=== PATIENT | female | born 1990 | race Caucasian/White ===

== ENCOUNTER 2018-12-13 19:27 | Inpatient (IN) | payer OTHER ==
[~2018-12-13] VITALS: Ht 170.2 cm; Wt 84.3 kg
[2018-12-13] MEDS ORDERED: ENOX80DI12 SC (22:06)
[2018-12-13] MEDS ORDERED: COU10 PO (22:06)
[2018-12-13] MEDS ORDERED: WARF5TAB PO (22:06)
[2018-12-13 22:14] VITALS: Ht 170.2 cm; Wt 84.3 kg
[2018-12-13] MEDS ORDERED: ACETAMINOPHEN 325 MG TAB PO PRN (22:30)
[2018-12-13] MEDS ORDERED: ONDANSETRON 4 MG INJ IV PRN (22:30)
[2018-12-13] MEDS: PROMETHAZINE/CODEINE 5ML CUP PO PRN (23:13)
[2018-12-13] MEDS: ENOXAPARIN 80 MG/0.8 ML SYG SC SCH (23:18)
[2018-12-13 23:20] VITALS: BP 126/77; PULSE 85; RESP 18
[2018-12-14] VITALS (11 sets, daily range): BP systolic 116–126; BP diastolic 65–78; PULSE 66–96; RESP 16–18
[2018-12-14] MEDS: PROMETHAZINE/CODEINE 5ML CUP PO PRN (05:21)
[2018-12-14] MEDS: PANTOPRAZOLE (EC) 40 MG TAB PO SCH (05:21)
[2018-12-14] MEDS: ENOXAPARIN 80 MG/0.8 ML SYG SC SCH ×2 (08:33→20:17)
--- NOTE | 2018-12-14 09:30 | QN ---
Documentation Comment pt seen and examined ORI KIDD MD December 14, 2018 09:30
--- NOTE | 2018-12-14 13:43 | HP ---
DATE OF ADMISSION: 12/13/2018 REASON FOR ADMISSION: Transferred from [facility] secondary to PE. HISTORY OF PRESENTING ILLNESS: This is a 28-year-old female with past medical history of antithrombi n III deficiency since 2009, history of PE in the past, presented to the emergency department at [facility] on 12/12/2018 secondary to sudden onset of cough and chest pain. According to the jeanna stephens, she normally follows with Coumadin with her doctor. She takes Coumadin 10 mg Wednesday, , Wednesday, Wednesday and 15 mg Wednesday and . She was supposed to get some kind of dental work like a root canal and was off of Coumadin for 3 weeks. She just started taking Coumadin 2 days prio r to admission. She had been exerting a lot due to her graduation and for the last 2 to 3 days prior to admission at [facility], she was feeling weak, having cough and some chest pain that made her com e to the emergency department at [facility]. On arrival to the ED there, vital signs were stable. S odium 140, potassium 3.6, chloride 106, bicarbonate 25, BUN of 10, creatinine 0.62. LFTs within norm al limits. The patient had CT angiogram that showed focal filling defect at the junction of the left lower pulmonary artery extending to the lower lobe branches remained in demonstration of loose opaci fication of the left lower pulmonary arteries, cannot exclude new pulmonary embolism, superimposed on chronic PE scarring, hepatic steatosis. The patient was started on Lovenox bridging and Coumadin an d was transferred to [facility] due to insurance reasons. The patient's INR was 1 yesterday and received 15 mg of Coumadin yesterday. PAST MEDICAL HISTORY: History of antithrombin III deficiency since 2009. ALLERGIES: HYDROMORPHONE. MEDICATIONS TAKING AT HOME: Coumadin 10 mg Wednesday, Wednesday, Wednesday, Wednesday and 15 mg Wednesday and . PAST SURGICAL HISTORY: D and C x2. SOCIAL HISTORY: Occasionally drinks alcohol. Denies any smoking, alcohol or any drug use. Currentl y graduated from [employer]. FAMILY HISTORY: Significant for antithrombin III deficiency present in the mother and the sister and father's side of the family. REVIEW OF SYSTEMS: The patient has some cough. Denies any chest pain, any shortness of breath, any abdominal pain, nausea, vomiting, diarrhea, any hematemesis, any melena, any bright red blood per rec chitra. PHYSICAL EXAMINATION: VITAL SIGNS: Currently temperature 98.0, heart rate 70, respirations 16, blood pressure 117/65, satu rating 97%. GENERAL: The patient is awake, alert, oriented, does not appear to be in any acute distress. HEENT: Pupils are equal, round, reactive to light. NECK: Supple. No JVD. HEART: Regular rate and rhythm. LUNGS: Clear to auscultate bilaterally. ABDOMEN: Soft, nontender, nondistended. Positive normoactive bowel sounds. EXTREMITIES: No clubbing, cyanosis or edema. NEUROLOGIC: Nonfocal. LABORATORY DATA: Currently, BMP within normal limit. INR is 1.50. ASSESSMENT AND PLAN: This is a 28-year-old female who presented with: 1. 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 CTA was performed which was consistent with recurrent segmental and subsegmental pulmonary embo li, no evidence of hemodynamic compromise. 2. History of antithrombin III deficiency. 3. History of pulmonary embolism. PLAN: At this period of time, the patient is admitted to [facility]. We will continue the patient on Love nox bridging with Coumadin. We will give 10 mg of Coumadin today. Hematology and pulmonary consulta tion has been requested. Rest of the treatment will depend on the patient's hospitalization course. Dictated By: ORI PAN/PATRICK Conf#: [id number] DID#: [id number] CC: BETTY LOUIS MD;*EndCC*
--- NOTE | 2018-12-14 16:33 | CONS ---
DATE OF ADMISSION: 12/13/2018 DATE OF CONSULTATION: REASON FOR CONSULT: Recurrent thromboembolic disease. 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 Since that time, she has had several PEs, last one wa s 2 years ago. She continues lifelong anticoagulation with Coumadin. In addition, the patient has h ad recent worsening respiratory distress secondary to an upper respiratory tract infection. She has not been seen previously by a pumper gauger apprentice or oncologist. She has family history of antithrombin III deficiency. Her mother was diagnosed with this problem before she was. PAST MEDICAL HISTORY: As above. MEDICATIONS: Per chart. ALLERGIES: NONE. SOCIAL HISTORY: Nonsmoker. No alcohol. No history of drug use. FAMILY HISTORY: Noncontributory. REVIEW OF SYSTEMS: A 12-point review of systems negative other than that mentioned above. PHYSICAL EXAMINATION: GENERAL: Well-nourished, well-developed lady, talking in full and complete sentences. VITAL SIGNS: Currently afebrile, pulse is 90, blood pressure 116/73, O2 sat 97% on room air. NECK: Supple. No JVD or lymphadenopathy. CARDIAC: S1, S2. No added sounds or murmurs. CHEST: Diminished air entry bilaterally. ABDOMEN: Soft, nontender. No guarding or rebound. EXTREMITIES: No cyanosis, clubbing, edema. NEUROLOGIC: Grossly intact. No focal deficits. 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 RECOMMENDATIONS: The patient would likely benefit from an alternative anticoagulation such as Eliqui s given her difficulty maintaining therapeutic INR on Coumadin. I will discuss this with hematologis t, but this seems like the safest approach. Dictated By: BETTY BARAHONA/PATRICK Conf#: [id number] DID#: [id number] CC: ORI KIDD;*EndCC*
[2018-12-14] MEDS ORDERED: WARFARIN 7.5 MG TAB PO ONE (17:00)
--- NOTE | 2018-12-14 23:33 | CONS ---
Assessment/Plan Assessment/Plan Hospital Course (Demo Recall) 28 yo with h/p PE in the past and dx of AT III def. off of coumadin for dental procedure and developed new PEshe has been on coumadin almost 9 years and done well. she had a PE due to being off of coumadin x several weeks without bridging she has never had trouble maintating a therapeutic INR we discused the various anticoagulants she prefers to stay on coumadin as she has done well with it and the fact that reversibility is straightforward conyt lovenox and coumadin overalap. in future for any procedures she needs bridging with lovenox Consultation Date/Type/Reason Admit Date/Time December 13, 2018 at 21:42 Date/Time of Note DATE: 12/14/18 TIME: 23:30 Hx of Present Illness This is a 28-year-old female with past medical history of antithrombin III deficiency since 2009, history of PE in the past, presented to the emergency department at [facility] on 12/12/2018 secondary to sudden onset of cough and chest pain. According to the patient, she normally follows with Coumadin with her doctor. She takes Coumadin 10 mg Wednesday, Wednesday, Wednesday, Wednesday and 15 mg Wednesday and . She was supposed to get some kind of dental work like a root canal and was off of Coumadin for 3 weeks. She just started taking Coumadin 2 days prior to admission. She had been exerting a lot due to her graduation and for the last 2 to 3 days prior to admission at [facility], she was feeling weak, having cough and some chest pain that made her come to the emergency department at [facility]. On arrival to the ED there, vital signs were stable. Sodium 140, potassium 3.6, chloride 106, bicarbonate 25, BUN of 10, creatinine 0.62. LFTs within normal limits. The patient had CT angiogram that showed focal filling defect at the junction of the left lower pulmonary artery extending to the lower lobe branches remained in demonstration of loose opacification of the left lower pulmonary arteries, cannot exclude new pulmonary embolism, superimposed on chronic PE scarring, hepatic steatosis. The patient was started on Lovenox bridging and Coumadin and was transferred to [facility] due to insurance reasons. The patient's INR was 1 yesterday and received 15 mg of Coumadin yesterday. Past Medical History Home Meds Reported Medications Warfarin Sodium* (Coumadin*) 5 Mg Tablet, 5 MG PO DAILY, TAB 12/13/18 Warfarin Sodium (Coumadin) 10 Mg Tablet, 10 MG PO DAILY, TAB 12/13/18 Enoxaparin Sodium* (Lovenox*) 80 Mg/0.8 Ml Disp.syrin, 80 MG SC Q12, SYR 12/13/18 Medications Current Medications Enoxaparin Sodium (Lovenox) 80 mg Q12 SC Last administered on 12/14/18at 20:17; Admin Dose 80 MG; Start 12/13/18 at 22:30 Promethazine HCl/ Codeine (Phenergan/ Codeine) 5 ml Q4H PRN PO COUGH Last administered on 12/14/18at 05:21; Admin Dose 5 ML; Start 12/13/18 at 22:30 Acetaminophen (Tylenol Tab) 650 mg Q6H PRN PO MILD PAIN(1-3)OR ELEVATED TEMP; Start 12/13/18 at 22:30 Ondansetron HCl (Zofran Inj) 4 mg Q6H PRN IV NAUSEA AND/OR VOMITING; Start 12/13/18 at 22:30 Pantoprazole (Protonix Tab) 40 mg DAILY@06 PO Last administered on 12/14/18at 05:21; Admin Dose 40 MG; Start 12/14/18 at 06:00 Allergies: Coded Allergies: hydromorphone (Verified Allergy, Intermediate, itchiness, 12/13/18) Social History Smoking Status: Former smoker Exam/Review of Systems Exam Vitals Vital Signs Date Temp Pulse Resp B/P (MAP) Pulse Ox O2 O2 Flow FiO2 Time Delivery Rate 12/14/18 90 21:46 12/14/18 98.1 17 126/65 99 19:22 (85) 12/14/18 Room Air 15:20 Intake and Output 12/13/18 12/13/18 12/14/18 1515:00 23:00 07:00 IntakeIntake Total 300 ml BalanceBalance 300 ml Results Result Diagram: 12/14/1814 12/14/1814 Results 24hrs Laboratory Tests Test 12/14/18 06:14 White Blood Count 6.3 Red Blood Count 4.37 Hemoglobin 13.5 Hematocrit 40.6 Mean Corpuscular Volume 92.9 Mean Corpuscular Hemoglobin 30.9 Mean Corpuscular Hemoglobin Concent 33.3 Red Cell Distribution Width 12.2 Platelet Count 265 Mean Platelet Volume 8.6 Immature Granulocytes % 0.300 Neutrophils % 33.6 L Lymphocytes % 49.0 Monocytes % 14.8 H Eosinophils % 1.7 Basophils % 0.6 Nucleated Red Blood Cells % 0.0 Immature Granulocytes # 0.020 Neutrophils # 2.1 Lymphocytes # 3.1 H Monocytes # 0.9 Eosinophils # 0.1 Basophils # 0.0 Nucleated Red Blood Cells # 0.0 Prothrombin Time 18.2 H Prothrombin Time Ratio 1.4 INR International Normalized Ratio 1.50 Sodium Level 139 Potassium Level 4.1 Chloride Level 105 Carbon Dioxide Level 26 Anion Gap 8 Blood Urea Nitrogen 12 Creatinine 0.67 Est Glomerular Filtrat Rate mL/min > 60 Glucose Level 89 Calcium Level 9.1 Medications Medication Current Medications Enoxaparin Sodium (Lovenox) 80 mg Q12 SC Last administered on 12/14/18at 20:17; Admin Dose 80 MG; Start 12/13/18 at 22:30 Promethazine HCl/ Codeine (Phenergan/ Codeine) 5 ml Q4H PRN PO COUGH Last administered on 12/14/18at 05:21; Admin Dose 5 ML; Start 12/13/18 at 22:30 Acetaminophen (Tylenol Tab) 650 mg Q6H PRN PO MILD PAIN(1-3)OR ELEVATED TEMP; Start 12/13/18 at 22:30 Ondansetron HCl (Zofran Inj) 4 mg Q6H PRN IV NAUSEA AND/OR VOMITING; Start 12/13/18 at 22:30 Pantoprazole (Protonix Tab) 40 mg DAILY@06 PO Last administered on 12/14/18at 05:21; Admin Dose 40 MG; Start 12/14/18 at 06:00 CHRISTIAN SCHAEFER December 14, 2018 23:33
[2018-12-15] VITALS (11 sets, daily range): BP systolic 116–129; BP diastolic 62–75; PULSE 59–90; RESP 16–19
[2018-12-15] MEDS: PROMETHAZINE/CODEINE 5ML CUP PO PRN ×3 (01:00→20:14)
[2018-12-15] MEDS: PANTOPRAZOLE (EC) 40 MG TAB PO SCH (01:24)
[2018-12-15] MEDS: ENOXAPARIN 80 MG/0.8 ML SYG SC SCH ×2 (09:25→21:22)
--- NOTE | 2018-12-15 09:45 | CONS ---
Assessment/Plan Assessment/Plan Assessment/Plan (Daily) Assessment and recommendations; 1. Patient with history of Antithrombin III deficiency and history of chronic recurrent thromboembolic disease admitted for what appears to be URI with significant clinical improvement. Continue current supportive care. As outlined earlier patient is a candidate f or apixaban or Xarelto going to faculty maintaining therapeutic INR on Coumadin. However this will be deferred to the director summer sessions. Consultation Date/Type/Reason Admit Date/Time December 13, 2018 at 21:42 Initial Consult Date Type of Consult Pulmonary Reason for Consultation Patient's condition is stable. Denies any wheezing. Complains of scant cough. Denies any hemoptysis. Denies any further shortness of breath. General exam; young woman, awake alert, currently no distress. Date/Time of Note DATE: 12/15/18 TIME: 09:43 Exam/Review of Systems Exam Vitals Vital Signs Date Temp Pulse Resp B/P (MAP) Pulse Ox O2 O2 Flow FiO2 Time Delivery Rate 12/15/18 59 08:24 12/15/18 98.0 17 127/67 99 04:42 (87) 12/14/18 Room Air 15:20 Intake and Output 12/14/18 12/14/18 12/15/18 1515:00 23:00 07:00 IntakeIntake Total 1480 ml 800 ml BalanceBalance 1480 ml 800 ml Exam H EENT exam; supple neck, no JVD. No lymphadenopathy. Midline trachea. No thyromegaly. Patient has fair dentition. Pharynx is clear. No neck masses. Chest exam; clear to auscultation. S1-S2 audible, no murmurs. Regular rhythm. Abdomen exam; soft, nontender. Bowel sounds audible. Extremity exam; no peripheral edema clubbing. PATTERN MARKER exam; no focal deficit. Results Result Diagram: 12/14/18 0614 12/14/18 0614 Results 24hrs Laboratory Tests Test 12/15/18 07:32 Prothrombin Time 23.9 #H Prothrombin Time Ratio 1.9 INR International Normalized Ratio 2.13 Medications Medication Current Medications Enoxaparin Sodium (Lovenox) 80 mg Q12 SC Last administered on 12/15/18at 09:25; Admin Dose 80 MG; Start 12/13/18 at 22:30 Promethazine HCl/ Codeine (Phenergan/ Codeine) 5 ml Q4H PRN PO COUGH Last administered on 12/15/18at 01:00; Admin Dose 5 ML; Start 12/13/18 at 22:30 Acetaminophen (Tylenol Tab) 650 mg Q6H PRN PO MILD PAIN(1-3)OR ELEVATED TEMP; Start 12/13/18 at 22:30 Ondansetron HCl (Zofran Inj) 4 mg Q6H PRN IV NAUSEA AND/OR VOMITING; Start 12/13/18 at 22:30 Pantoprazole (Protonix Tab) 40 mg DAILY@06 PO Last administered on 12/15/18at 01:24; Admin Dose 40 MG; Start 12/14/18 at 06:00 MARV PRADO December 15, 2018 09:45
--- NOTE | 2018-12-15 11:44 | PN ---
Date/Time of Note Date/Time of Note DATE: 12/15/18 TIME: 11:40 Assessment/Plan VTE Prophylaxis Risk score (from [facility] risk: 3 SCD applied (from [facility]): No SCD contraindicated: low risk/ambulating, other Pharmacological prophylaxis: warfarin tx Lines/Catheters IV Catheter Type (from [facility]): Saline Lock Assessment/Plan Hospital Course 1. 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 CTA was performed which was consistent with recurrent segmental and subsegmental pulmonary emboli, no evidence of hemodynamic compromise. 2. History of antithrombin III deficiency. 3. History of pulmonary embolism. 4. Overweight Assessment/Plan - tele. -ok shower -GI proph. protonix - Coumadin high dose is given. - c/w Coumadin today. - Hematology and pulmonary consultation -DVT treatment Coumadin Result Diagram: 12/14/1861312/14/18613 Results 24hrs Laboratory Tests Test 12/15/18 07:32 Prothrombin Time 23.9 #H Prothrombin Time Ratio 1.9 INR International Normalized Ratio 2.13 Subjective 24 Hr Interval Summary Constitutional: no complaints Exam/Review of Systems Exam Vitals Vital Signs Date Temp Pulse Resp B/P (MAP) Pulse Ox O2 O2 Flow FiO2 Time Delivery Rate 12/15/18 98.7 82 16 116/67 97 Room Air 11:15 (83) Intake and Output 12/14/18 12/14/18 12/15/18 1515:00 23:00 07:00 IntakeIntake Total 1480 ml 800 ml BalanceBalance 1480 ml 800 ml Constitutional: alert, oriented Respiratory: clear to auscultation Cardiovascular: regular rate and rhythm Gastrointestinal: soft Results Results 24hrs Laboratory Tests Test 12/15/18 07:32 Prothrombin Time 23.9 #H Prothrombin Time Ratio 1.9 INR International Normalized Ratio 2.13 Medications Medication Current Medications Enoxaparin Sodium (Lovenox) 80 mg Q12 SC Last administered on 12/15/18at 09:25; Admin Dose 80 MG; Start 12/13/18 at 22:30 Promethazine HCl/ Codeine (Phenergan/ Codeine) 5 ml Q4H PRN PO COUGH Last administered on 12/15/18at 01:00; Admin Dose 5 ML; Start 12/13/18 at 22:30 Acetaminophen (Tylenol Tab) 650 mg Q6H PRN PO MILD PAIN(1-3)OR ELEVATED TEMP; Start 12/13/18 at 22:30 Ondansetron HCl (Zofran Inj) 4 mg Q6H PRN IV NAUSEA AND/OR VOMITING; Start 12/13/18 at 22:30 Pantoprazole (Protonix Tab) 40 mg DAILY@06 PO Last administered on 12/15/18at 01:24; Admin Dose 40 MG; Start 12/14/18 at 06:00 DANIELE AGUILAR December 15, 2018 11:44
[2018-12-16] VITALS (10 sets, daily range): BP systolic 105–119; BP diastolic 57–80; PULSE 68–97; RESP 16–19
[2018-12-16] MEDS: PANTOPRAZOLE (EC) 40 MG TAB PO SCH (05:52)
[2018-12-16] MEDS: PROMETHAZINE/CODEINE 5ML CUP PO PRN (05:54)
[2018-12-16] MEDS: ENOXAPARIN 80 MG/0.8 ML SYG SC SCH ×2 (09:04→21:17)
--- NOTE | 2018-12-16 13:49 | PN ---
Date/Time of Note Date/Time of Note DATE: 12/16/18 TIME: 13:48 Assessment/Plan VTE Prophylaxis Risk score (from [facility] [place])>0 risk: 3 SCD applied (from [facility] [place]): No SCD contraindicated: low risk/ambulating Pharmacological prophylaxis: LMWH Lines/Catheters IV Catheter Type (from [facility]): Saline Lock Assessment/Plan Hospital Course 1. 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 CTA was performed which was consistent with recurrent segmental and subsegmental pulmonary emboli, no evidence of hemodynamic compromise. 2. History of antithrombin III deficiency. 3. History of pulmonary embolism. 4. Overweight Assessment/Plan - tele. -ok shower -GI proph. protonix - Coumadin high dose is ordered today - Hematology and pulmonary consultation -DVT treatment Coumadin Result Diagram: 12/16/1837 12/16/1837 Results 24hrs Laboratory Tests Test 12/16/18 06:37 White Blood Count 8.9 # Red Blood Count 4.40 Hemoglobin 13.3 Hematocrit 41.0 Mean Corpuscular Volume 93.2 Mean Corpuscular Hemoglobin 30.2 Mean Corpuscular Hemoglobin Concent 32.4 Red Cell Distribution Width 12.2 Platelet Count 273 Mean Platelet Volume 8.7 Immature Granulocytes % 0.200 Neutrophils % 38.3 L Lymphocytes % 52.6 H Monocytes % 7.4 Eosinophils % 1.2 Basophils % 0.3 Nucleated Red Blood Cells % 0.0 Immature Granulocytes # 0.020 Neutrophils # 3.4 Lymphocytes # 4.7 H Monocytes # 0.7 Eosinophils # 0.1 Basophils # 0.0 Nucleated Red Blood Cells # 0.0 Prothrombin Time 21.6 H Prothrombin Time Ratio 1.7 INR International Normalized Ratio 1.87 Sodium Level 139 Potassium Level 4.1 Chloride Level 106 Carbon Dioxide Level 26 Anion Gap 7 Blood Urea Nitrogen 17 Creatinine 0.81 Est Glomerular Filtrat Rate mL/min > 60 Glucose Level 96 Calcium Level 9.2 Subjective 24 Hr Interval Summary Constitutional: no complaints Exam/Review of Systems Exam Vitals Vital Signs Date Temp Pulse Resp B/P (MAP) Pulse Ox O2 O2 Flow FiO2 Time Delivery Rate 12/16/18 73 12:17 12/16/18 98.7 16 116/68 100 Room Air 11:15 (84) Intake and Output 12/15/18 12/15/1819 1515:00 23:00 07:00 IntakeIntake Total 800 ml BalanceBalance 800 ml Constitutional: alert, oriented Head: normocephalic Respiratory: diminished breath sounds Cardiovascular: regular rate and rhythm Gastrointestinal: soft Results Results 24hrs Laboratory Tests Test 12/16/18 06:37 White Blood Count 8.9 # Red Blood Count 4.40 Hemoglobin 13.3 Hematocrit 41.0 Mean Corpuscular Volume 93.2 Mean Corpuscular Hemoglobin 30.2 Mean Corpuscular Hemoglobin Concent 32.4 Red Cell Distribution Width 12.2 Platelet Count 273 Mean Platelet Volume 8.7 Immature Granulocytes % 0.200 Neutrophils % 38.3 L Lymphocytes % 52.6 H Monocytes % 7.4 Eosinophils % 1.2 Basophils % 0.3 Nucleated Red Blood Cells % 0.0 Immature Granulocytes # 0.020 Neutrophils # 3.4 Lymphocytes # 4.7 H Monocytes # 0.7 Eosinophils # 0.1 Basophils # 0.0 Nucleated Red Blood Cells # 0.0 Prothrombin Time 21.6 H Prothrombin Time Ratio 1.7 INR International Normalized Ratio 1.87 Sodium Level 139 Potassium Level 4.1 Chloride Level 106 Carbon Dioxide Level 26 Anion Gap 7 Blood Urea Nitrogen 17 Creatinine 0.81 Est Glomerular Filtrat Rate mL/min > 60 Glucose Level 96 Calcium Level 9.2 Medications Medication Current Medications Enoxaparin Sodium (Lovenox) 80 mg Q12 SC Last administered on 12/16/18at 09:04; Admin Dose 80 MG; Start 12/13/18 at 22:30 Promethazine HCl/ Codeine (Phenergan/ Codeine) 5 ml Q4H PRN PO COUGH Last administered on 12/16/18at 05:54; Admin Dose 5 ML; Start 12/13/18 at 22:30 Acetaminophen (Tylenol Tab) 650 mg Q6H PRN PO MILD PAIN(1-3)OR ELEVATED TEMP; Start 12/13/18 at 22:30 Ondansetron HCl (Zofran Inj) 4 mg Q6H PRN IV NAUSEA AND/OR VOMITING; Start 12/13/18 at 22:30 Pantoprazole (Protonix Tab) 40 mg DAILY@06 PO Last administered on 12/16/18at 05:52; Admin Dose 40 MG; Start 12/14/18 at 06:00 Warfarin Sodium (Coumadin) 15 mg ONCE@17 ONCE NGT ; Start 12/16/18 at 17:00; Stop 12/16/18 at 17:01 DANIELE AGUILAR December 16, 2018 13:49
--- NOTE | 2018-12-16 14:08 | CONS ---
Consult Date/Type/Reason Admit Date/Time December 13, 2018 at 21:42 Initial Consult Date Type of Consult Pulmonary Date/Time of Note DATE: 12/16/18 TIME: 14:07 Subjective Patient remains comfortable on room air with no respiratory distress. Objective Vital Signs Date Temp Pulse Resp B/P (MAP) Pulse Ox O2 O2 Flow FiO2 Time Delivery Rate 12/16/18 73 12:17 12/16/18 98.7 16 116/68 100 Room Air 11:15 (84) Intake and Output 12/15/18 12/15/18 12/16/18 1515:00 23:00 07:00 IntakeIntake Total 800 ml BalanceBalance 800 ml Exam GENERAL: Well-nourished well-developed lady comfortable at rest VITAL SIGNS: per chart NECK: Supple. No JVD or lymphadenopathy. CARDIAC EXAM: S1, S2. No added sounds or murmurs. CHEST: clear bilaterally, No added sounds, rales or wheezes ABDOMEN: Soft, nontender. No guarding or rebound. EXTREMITIES: No cyanosis, clubbing or edema. NEUROLOGIC: Generalized weakness. No focal deficits. Results/Medications Result Diagram: 12/16/18 0637 12/16/18 0637 Results 24 hrs Laboratory Tests Test 12/16/18 06:37 White Blood Count 8.9 # Red Blood Count 4.40 Hemoglobin 13.3 Hematocrit 41.0 Mean Corpuscular Volume 93.2 Mean Corpuscular Hemoglobin 30.2 Mean Corpuscular Hemoglobin Concent 32.4 Red Cell Distribution Width 12.2 Platelet Count 273 Mean Platelet Volume 8.7 Immature Granulocytes % 0.200 Neutrophils % 38.3 L Lymphocytes % 52.6 H Monocytes % 7.4 Eosinophils % 1.2 Basophils % 0.3 Nucleated Red Blood Cells % 0.0 Immature Granulocytes # 0.020 Neutrophils # 3.4 Lymphocytes # 4.7 H Monocytes # 0.7 Eosinophils # 0.1 Basophils # 0.0 Nucleated Red Blood Cells # 0.0 Prothrombin Time 21.6 H Prothrombin Time Ratio 1.7 INR International Normalized Ratio 1.87 Sodium Level 139 Potassium Level 4.1 Chloride Level 106 Carbon Dioxide Level 26 Anion Gap 7 Blood Urea Nitrogen 17 Creatinine 0.81 Est Glomerular Filtrat Rate mL/min > 60 Glucose Level 96 Calcium Level 9.2 Medications Current Medications Enoxaparin Sodium (Lovenox) 80 mg Q12 SC Last administered on 12/16/18at 09:04; Admin Dose 80 MG; Start 12/13/18 at 22:30 Promethazine HCl/ Codeine (Phenergan/ Codeine) 5 ml Q4H PRN PO COUGH Last admi nistered on 12/16/18at 05:54; Admin Dose 5 ML; Start 12/13/18 at 22:30 Acetaminophen (Tylenol Tab) 650 mg Q6H PRN PO MILD PAIN(1-3)OR ELEVATED TEMP; Start 12/13/18 at 22:30 Ondansetron HCl (Zofran Inj) 4 mg Q6H PRN IV NAUSEA AND/OR VOMITING; Start 12/13/18 at 22:30 Pantoprazole (Protonix Tab) 40 mg DAILY@06 PO Last administered on 12/16/18at 05:52; Admin Dose 40 MG; Start 12/14/18 at 06:00 Warfarin Sodium (Coumadin) 15 mg ONCE@17 ONCE NGT ; Start 12/16/18 at 17:00; Stop 12/16/18 at 17:01 Assessment/Plan Hospital Course (Demo Recall) Assessment 1. Acute pulmonary embolus in a patient with Antithrombin III deficiency. Prior history of thromboembolic disease Plan 1. Continue anticoagulated with Coumadin hematology oncology recommendations noted. We will follow as needed. BETTY LOUIS MD, [facility] December 16, 2018 14:08
[2018-12-16] MEDS ORDERED: WARFARIN 7.5 MG TAB NGT ONE (17:00)
[2018-12-17] VITALS (12 sets, daily range): BP systolic 101–122; BP diastolic 55–71; PULSE 49–100; RESP 18–22
[2018-12-17] MEDS: PANTOPRAZOLE (EC) 40 MG TAB PO SCH (06:24)
[2018-12-17] MEDS: ENOXAPARIN 80 MG/0.8 ML SYG SC SCH ×2 (09:42→20:45)
--- NOTE | 2018-12-17 12:07 | PN ---
Date/Time of Note Date/Time of Note DATE: 12/17/18 TIME: 12:06 Assessment/Plan VTE Prophylaxis Risk [place]from [facility] [place] risk: 6 SCD applied (from [facility] [place]): No SCD contraindicated: other Pharmacological prophylaxis: LMWH Pharm contraindication: low risk/ambulating Lines/Catheters IV Catheter Type (from [facility]): Saline Lock Assessment/Plan Hospital Course 1. 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 CTA was performed which was consistent with recurrent segmental and subsegmental pulmonary emboli, no evidence of hemodynamic compromise. 2. History of antithrombin III deficiency. 3. History of pulmonary embolism. 4. Overweight Assessment/Plan - tele. -daily INR, PTT -GI proph. Protonix - Coumadin 10 mg dose is ordered today - Hematology and pulmonary consultation -DVT treatment Coumadin lovenox while bridged Result Diagram: 12/16/1863612/16/1837 Results 24hrs Laboratory Tests Test 12/17/18 09:31 Prothrombin Time 21.0 H Prothrombin Time Ratio 1.6 INR International Normalized Ratio 1.80 Activated Partial Thromboplast Time 44.4 H Subjective 24 Hr Interval Summary Constitutional: no complaints, improved Exam/Review of Systems Exam Vitals Vital Signs Date Temp Pulse Resp B/P (MAP) Pulse Ox O2 O2 Flow FiO2 Time Delivery Rate 12/17/18 98.6 86 22 120/71 96 Room Air 11:12 (87) Intake and Output 12/16/18 12/16/18 12/17/18 1515:00 23:00 07:00 IntakeIntake Total 1500 ml 900 ml BalanceBalance 1500 ml 900 ml Constitutional: alert, oriented Respiratory: clear to auscultation Cardiovascular: regular rate and rhythm Gastrointestinal: soft Results Results 24hrs Laboratory Tests Test 12/17/18 09:31 Prothrombin Time 21.0 H Prothrombin Time Ratio 1.6 INR International Normalized Ratio 1.80 Activated Partial Thromboplast Time 44.4 H Medications Medication Current Medications Enoxaparin Sodium (Lovenox) 80 mg Q12 SC Last administered on 12/17/18at 09:42; Admin Dose 80 MG; Start 12/13/18 at 22:30 Promethazine HCl/ Codeine (Phenergan/ Codeine) 5 ml Q4H PRN PO COUGH Last administered on 12/16/18at 05:54; Admin Dose 5 ML; Start 12/13/18 at 22:30 Acetaminophen (Tylenol Tab) 650 mg Q6H PRN PO MILD PAIN(1-3)OR ELEVATED TEMP; Start 12/13/18 at 22:30 Ondansetron HCl (Zofran Inj) 4 mg Q6H PRN IV NAUSEA AND/OR VOMITING; Start 12/13/18 at 22:30 Pantoprazole (Protonix Tab) 40 mg DAILY@06 PO Last administered on 12/17/18at 06:24; Admin Dose 40 MG; Start 12/14/18 at 06:00 DANIELE AGUILAR December 17, 2018 12:07
[2018-12-17] MEDS ORDERED: WARFARIN 10 MG TAB PO ONE (17:00)
[2018-12-17] MEDS ORDERED: WARFARIN 7.5 MG TAB PO SCH (17:00)
--- NOTE | 2018-12-17 20:58 | CONS ---
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 Patient had a PE due to being off of Coumadin x several weeks without bridging - CTA performed which was consistent with recurrent segmental and subsegmental pulmonary emboli, no evidence of hemodynamic compromise. - Dr Teixeira had discussed the various anticoagulants. Patient prefers to stay on coumadin as she has done well with it .she has never had trouble maintaining a therapeutic INR - INR 1.80 today -- Coumadin 10 mg dose is ordered today - History of antithrombin III deficiency. - History of pulmonary embolism. - cont Lovenox and Coumadin overlap. in future for any procedures she needs bridging with Lovenox. - Overweight- weight management Patient seen in collaboration with Dr Salter Consultation Date/Type/Reason Admit Date/Time December 13, 2018 at 21:42 Initial Consult Date Type of Consult HEMATOLOGY/ ONCOLOGY Reason for Consultation RECURRENT PE Date/Time of Note DATE: 12/17/18 TIME: 20:57 24 HR Interval Summary Free Text/Dictation Feels better wants to go home INR 1.80 today no acute events reported overnight dw staff Constitutional: improved Detailed Summary Eyes: no complaints ENT: no complaints Respiratory: no complaints Cardiovascular: no complaints Gastrointestinal: no complaints Genitourinary: no complaints Musculoskeletal: no complaints Skin: no complaints Neurologic: no complaints Lymphatic: no complaints Psychological: nl mood/affect, anxiety Exam/Review of Systems Exam Vitals Vital Signs Date Temp Pulse Resp B/P (MAP) Pulse Ox O2 O2 Flow FiO2 Time Delivery Rate 12/17/18 97.7 92 18 122/60 96 Room Air 20:09 (80) Intake and Output 12/16/18 12/16/18 12/17/18 1515:00 23:00 07:00 IntakeIntake Total 1500 ml 900 ml BalanceBalance 1500 ml 900 ml Constitutional: alert, well developed Psych: nl mood/affect Head: atraumatic Eyes: nl lids, nl sclera ENMT: nl external ears & nose Neck: non-tender Respiratory: clear to auscultation Cardiovascular: nl pulses, other (S1S2) Gastrointestinal: soft, non-tender Musculoskeletal: nl extremities to inspection Extremities: normal pulses Neurological: nl mental status, nl speech Skin: nl turgor Lymph: nontender Results Result Diagram: 12/16/1837 12/16/18 0637 Results 24hrs Laboratory Tests Test 12/17/18 09:31 Prothrombin Time 21.0 H Prothrombin Time Ratio 1.6 INR International Normalized Ratio 1.80 Activated Partial Thromboplast Time 44.4 H Medications Medication Current Medications Enoxaparin Sodium (Lovenox) 80 mg Q12 SC Last administered on 12/17/18at 20:45; Admin Dose 80 MG; Start 12/13/18 at 22:30 Promethazine HCl/ Codeine (Phenergan/ Codeine) 5 ml Q4H PRN PO COUGH Last administered on 12/16/18at 05:54; Admin Dose 5 ML; Start 12/13/18 at 22:30 Acetaminophen (Tylenol Tab) 650 mg Q6H PRN PO MILD PAIN(1-3)OR ELEVATED TEMP; Start 12/13/18 at 22:30 Ondansetron HCl (Zofran Inj) 4 mg Q6H PRN IV NAUSEA AND/OR VOMITING; Start 12/13/18 at 22:30 Pantoprazole (Protonix Tab) 40 mg DAILY@06 PO Last administered on 12/17/18at 06:24; Admin Dose 40 MG; Start 12/14/18 at 06:00 Warfarin Sodium (Coumadin) 15 mg DAILY@17 PO Last administered on 12/17/18at 16:35; Admin Dose 15 MG; Start 12/17/18 at 17:00 ESTEBAN CARTER December 17, 2018 20:58
[2018-12-18] VITALS: BP 112/56; PULSE 60; PULSE 72; RESP 18
[2018-12-18 04:00] VITALS: BP 108/68; PULSE 66; PULSE 73; RESP 18
[2018-12-18] MEDS: PANTOPRAZOLE (EC) 40 MG TAB PO SCH (06:42)
[2018-12-18 07:22] VITALS: BP 108/60; PULSE 62; RESP 22
[2018-12-18 08:28] VITALS: PULSE 55
[2018-12-18] MEDS: ENOXAPARIN 80 MG/0.8 ML SYG SC SCH (09:04)
--- NOTE | 2018-12-18 11:03 | PDOCDIS ---
Discharge Instructions CONDITION [id number] Patient Condition: [id number] Stable ACTIVITY: [id number] Activity Restrictions: [id number] Slowly Increase Activity Rest between Activity Avoid heavy lifting FOLLOW UP/APPOINTMENTS Follow-up Plan PCP 1 week DANIELE AGUILAR December 18, 2018 11:02
--- NOTE | 2018-12-18 11:03 | DS ---
Date/Time of Note Date/Time of Note DATE: 12/18/18 TIME: 11:03 Discharge Summary Admission/Discharge Info Admit Date/Time December 13, 2018 at 21:42 Discharge Date/Time Discharge Diagnosis PE Patient Condition: Stable Consults Joie, oncology. Jannet pulmonology Hospital Course This is a 28-year-old female with past medical history of antithrombin III deficiency since 2009, history of PE in the past, presented to the emergency department at [facility] on 12/12/2018 secondary to sudden onset of cough and chest pain. According to the patient, she normally follows with Kannan burroughs with her doctor. She takes Coumadin 10 mg Wednesday, Wednesday, Wednesday, Wednesday and 15 mg Wednesday and . She was supposed to get some kind of dental work like a root canal and was off of Coumadin for 3 weeks. She just started taking Coumadin 2 days prior to admission. She had been exerting a lot due to her graduation and for the last 2 to 3 days prior to admission at [facility], she was feeling weak, having cough and some chest pain that made her come to the emergency department at [facility]. On arrival to the ED there, vital signs were stable. Sodium 140, potassium 3.6, chloride 106, bicarbonate 25, BUN of 10, creatinine 0.62. LFTs within normal limits. The patient had CT angiogram that showed focal filling defect at the junction of the left lower pulmonary artery extending to the lower lobe branches remained in demonstration of loose opacification of the left lower pulmonary arteries, cannot exclude new pulmonary embolism, superimposed on chronic PE scarring, hepatic steatosis. The patient was started on Lovenox bridging and Coumadin and was transferred to [facility] due to insurance reasons. The patient's INR was 1 yesterday and received 15 mg of Coumadin yesterday. PAST MEDICAL HISTORY: History of antithrombin III deficiency since 2009. ALLERGIES: HYDROMORPHONE. MEDICATIONS TAKING AT HOME: Coumadin 10 mg Wednesday, Wednesday, Wednesday, Wednesday and 15 mg Wednesday and .1. 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 CTA was performed which was consistent with recurrent segmental and subsegmental pulmonary emboli, no evidence of hemodynamic compromise. 2. History of antithrombin III deficiency. 3. History of pulmonary embolism. 4. Overweight During hospitalization Dr Salter/Puneet consulted pt on her antithrombin III deficiency since 2009, all recommendations were followed. Pt was on Lovenox treatment 80 mg sq BID and was given Coumadin 15 mg po daily. Her INR was checked and when it was reached 2.1 pt was discharged home with recommendation to c/w usual Coumadin doses. Dr Power consulted pt as a animal care specialist. There were no special treatment. She can not be converted to Eliquiz due to nature of her disease. Home Meds Reported Medications Warfarin Sodium* (Coumadin*) 5 Mg Tablet, 5 MG PO DAILY, TAB 12/13/18 Warfarin Sodium (Coumadin) 10 Mg Tablet, 10 MG PO DAILY, TAB 12/13/18 Discontinued Reported Medications Enoxaparin Sodium* (Lovenox*) 80 Mg/0.8 Ml Disp.syrin, 80 MG SC Q12, SYR 12/13/18 Follow-up Plan PCP 1 week Primary Care Provider Lan Rowe Time spent on discharge: < 30 minutes Pending Labs Laboratory Tests Test 12/18/18 05:55 White Blood Count 10.4 10^3/ul (4.8-10.8) Red Blood Count 4.37 10^6/ul (4.20-5.40) Hemoglobin 13.3 g/dl (12.0-16.0) Hematocrit 40.1 % (37.0-47.0) Mean Corpuscular Volume 91.8 fl (82.0-101.0) Mean Corpuscular Hemoglobin 30.4 pg (29.0-33.0) Mean Corpuscular Hemoglobin Concent 33.2 g/dl (32.0-37.0) Red Cell Distribution Width 12.2 % (11.5-14.5) Platelet Count 278 10^3/UL (140-415) Mean Platelet Volume 8.7 fl (7.4-10.4) Immature Granulocytes % 0.400 % (0.001-0.429) Neutrophils % 45.0 % (39.0-77.0) Lymphocytes % 46.2 % (15.0-51.0) Monocytes % 7.6 % (0.0-11.0) Eosinophils % 0.5 % (0.0-7.0) Basophils % 0.3 % (0.0-2.0) Nucleated Red Blood Cells % 0.0 /100WBC (0.0-0.0) Immature Granulocytes # 0.040 10^3/ul (0.0-0.031) Neutrophils # 4.7 10^3/ul (1.6-7.5) Lymphocytes # 4.8 10^3/ul (0.8-2.9) Monocytes # 0.8 10^3/ul (0.3-0.9) Eosinophils # 0.1 10^3/ul (0.0-0.5) Basophils # 0.0 10^3/ul (0.0-0.1) Nucleated Red Blood Cells # 0.0 10^3/ul (0.0-0.0) Prothrombin Time 27.1 Sec (11.9-14.9) Prothrombin Time Ratio 2.1 INR International Normalized Ratio 2.50 Activated Partial Thromboplast Time 44.2 Sec (23.0-35.0) Sodium Level 139 mmol/L (135-144) Potassium Level 4.2 mmol/L (3.5-5.1) Chloride Level 106 mmol/L (97-110) Carbon Dioxide Level 25 mmol/L (21-31) Anion Gap 8 (5-13) Blood Urea Nitrogen 15 mg/dl (7-20) Creatinine 0.76 mg/dl (0.44-1.00) Est Glomerular Filtrat Rate mL/min > 60 mL/min (>60) Glucose Level 91 mg/dl (70-220) Calcium Level 9.0 mg/dl (8.4-10.2) DANIELE AGUILAR December 18, 2018 11:03
[2018-12-18 11:07] VITALS: BP 114/69; PULSE 71; RESP 22
--- NOTE | 2018-12-18 23:16 | CONS ---
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 Patient had a PE due to being off of Coumadin x several weeks without bridging - CTA performed which was consistent with recurrent segmental and subsegmental pulmonary emboli, no evidence of hemodynamic compromise. - Dr Teixeira had discussed the various anticoagulants. Patient prefers to stay on coumadin as she has done well with it .she has never had trouble maintaining a therapeutic INR - INR 2.50 today -- Coumadin 10 mg dose is ordered today - History of antithrombin III deficiency. - History of pulmonary embolism. - cont Lovenox and Coumadin overlap. in future for any procedures she needs bridging with Lovenox. - Overweight- weight management Possible discharge today .Patient seen in collaboration with Dr Salter Consultation Date/Type/Reason Admit Date/Time December 13, 2018 at 21:42 Initial Consult Date Date/Time of Note DATE: 12/18/18 TIME: 23:16 24 HR Interval Summary Free Text/Dictation - INR 2.50 today - no new events reported last night - possible discharge today dw staff Constitutional: improved Detailed Summary Eyes: no complaints ENT: no complaints Respiratory: no complaints Cardiovascular: no complaints Gastrointestinal: no complaints Genitourinary: no complaints Musculoskeletal: no complaints Skin: no complaints Neurologic: no complaints Endocrine: no complaints Lymphatic: no complaints Psychological: nl mood/affect Immunologic: no complaints Exam/Review of Systems Exam Vitals Vital Signs Date Temp Pulse Resp B/P (MAP) Pulse Ox O2 O2 Flow FiO2 Time Delivery Rate 12/18/18 98.0 71 22 114/69 96 Room Air 11:07 (84) Intake and Output 12/17/18 12/17/18 12/18/18 1515:00 23:00 07:00 IntakeIntake Total 980 ml 600 ml BalanceBalance 980 ml 600 ml Constitutional: alert, well developed Psych: nl mood/affect Head: normocephalic Eyes: nl conjunctiva, nl lids ENMT: nl external ears & nose Neck: non-tender Respiratory: clear to auscultation Cardiovascular: nl pulses, other (s1s2) Gastrointestinal: soft, non-tender Musculoskeletal: nl extremities to inspection Extremities: normal pulses Neurological: nl mental status Skin: nl turgor Lymph: nontender Results Result Diagram: 12/18/18 0555 12/18/18 0555 Results 24hrs Laboratory Tests Test 12/18/18 05:55 White Blood Count 10.4 Red Blood Count 4.37 Hemoglobin 13.3 Hematocrit 40.1 Mean Corpuscular Volume 91.8 Mean Corpuscular Hemoglobin 30.4 Mean Corpuscular Hemoglobin Concent 33.2 Red Cell Distribution Width 12.2 Platelet Count 278 Mean Platelet Volume 8.7 Immature Granulocytes % 0.400 Neutrophils % 45.0 Lymphocytes % 46.2 Monocytes % 7.6 Eosinophils % 0.5 Basophils % 0.3 Nucleated Red Blood Cells % 0.0 Immature Granulocytes # 0.040 H Neutrophils # 4.7 Lymphocytes # 4.8 H Monocytes # 0.8 Eosinophils # 0.1 Basophils # 0.0 Nucleated Red Blood Cells # 0.0 Prothrombin Time 27.1 #H Prothrombin Time Ratio 2.1 INR International Normalized Ratio 2.50 Activated Partial Thromboplast Time 44.2 H Sodium Level 139 Potassium Level 4.2 Chloride Level 106 Carbon Dioxide Level 25 Anion Gap 8 Blood Urea Nitrogen 15 Creatinine 0.76 Est Glomerular Filtrat Rate mL/min > 60 Glucose Level 91 Calcium Level 9.0 ESTEBAN CARTER December 18, 2018 23:16
== END 2018-12-18 12:07 | disposition home or self-care (01) | DRG 176 ==
LOC: TEL 21:42
PROVIDERS: ADMIT Internal Medicine; ATTEND Internal Medicine
DX: I26.99 Other pulmonary embolism without acute cor pulmonale (principal); D68.59 Other primary thrombophilia; I27.82 Chronic pulmonary embolism; J06.9 Acute upper respiratory infection, unspecified; E66.3 Overweight; Z68.29 Body mass index [BMI] 29.0-29.9, adult; Z79.01 Long term (current) use of anticoagulants
CPT/HCPCS: 80048; 85025; 85610; 85730

== ENCOUNTER 2019-02-06 18:14 | Emergency (ER) | payer OTHER ==
[~2019-02-06] VITALS: Ht 170.2 cm; Wt 88.3 kg
[~2019-02-06 18:14] MED LIST: COU10 PO; WARF5TAB PO
[2019-02-06 18:18] VITALS: Ht 170.2 cm; Wt 88.3 kg
--- NOTE | 2019-02-06 18:47 | ERD ---
ER Documentation Chief Complaint Chief Complaint CP ONSET 3 DAYS HPI The patient is a 28-year-old female, presenting to the ER because of left-sided chest discomfort for intermittently for the last 3 days, denies any dyspnea, had similar symptoms previously. She denies fever, chills, chest pain with vomiting/exertion/diaphoresis, abdominal pain, vomiting, dysuria, diarrhea. She is 3 para 0 2. LMP was December 24, 2018. She recently found out that she is and does not plan to keep the baby Medical history: History of DVT and PE, Antithrombin III deficiency Surgical history: D&C ROS All systems reviewed and are negative except as per history of present illness. Medications Home Meds Reported Medications Warfarin Sodium (Coumadin) 10 Mg Tablet, 10 MG PO DAILY, TAB 12/13/18 Discontinued Reported Medications Warfarin Sodium* (Coumadin*) 5 Mg Tablet, 5 MG PO DAILY, TAB 12/13/18 Allergies Allergies: Coded Allergies: hydromorphone (Unverified Allergy, Intermediate, itchiness, 02/06/19) PMhx/Soc Anesthesia Reaction: No Hx Neurological Disorder: No Hx Respiratory Disorders: Yes (PE) Hx Cardiac Disorders: No Hx Psychiatric Problems: No Hx Miscellaneous Medical Probl: Yes (CLOTTING) Hx Alcohol Use: Yes (OCCASIONAL) Hx Substance Use: No Hx Tobacco Use: Yes Physical Exam Vitals Vital Signs Date Temp Pulse Resp B/P (MAP) Pulse Ox O2 O2 Flow FiO2 Time Delivery Rate 02/06/19 75 16 111/70 96 Room Air 22:13 (84) 02/06/19 98.0 76 18 116/74 97 Room Air 20:21 (88) 02/06/19 79 18 120/76 98 Room Air 19:15 (91) 02/06/19 97.8 74 17 146/75 98 18:18 (98) Physical Exam Const: No acute distress. Head: Atraumatic. Eyes: Normal Conjunctiva. ENT: Normal External Ears, Nose and Mouth. Neck: Full range of motion. No meningismus. Resp: Clear to auscultation bilaterally. Cardio: Regular rate and rhythm. Abd: Soft, non distended, normal bowel sounds, non tender. Skin: No petechiae or rashes. Back: No midline or flank tenderness. Ext: No cyanosis, or edema. Neur: Awake and alert. No focal deficit Psych: Normal Mood and Affect. Result Diagram: 02/06/19190302/06/191903 Results 24 hrs Laboratory Tests Test 02/06/19 19:04 White Blood Count 11.1 10^3/ul Red Blood Count 4.09 10^6/ul Hemoglobin 12.5 g/dl Hematocrit 37.0 % Mean Corpuscular Volume 90.5 fl Mean Corpuscular Hemoglobin 30.6 pg Mean Corpuscular Hemoglobin Concent 33.8 g/dl Red Cell Distribution Width 12.6 % Platelet Count 297 10^3/UL Mean Platelet Volume 8.5 fl Immature Granulocytes % 0.400 % Neutrophils % 66.2 % Lymphocytes % 23.8 % Monocytes % 9.1 % Eosinophils % 0.2 % Basophils % 0.3 % Nucleated Red Blood Cells % 0.0 /100WBC Immature Granulocytes # 0.040 10^3/ul Neutrophils # 7.3 10^3/ul Lymphocytes # 2.6 10^3/ul Monocytes # 1.0 10^3/ul Eosinophils # 0.0 10^3/ul Basophils # 0.0 10^3/ul Nucleated Red Blood Cells # 0.0 10^3/ul Sodium Level 137 mmol/L Potassium Level 3.7 mmol/L Chloride Level 106 mmol/L Carbon Dioxide Level 22 mmol/L Anion Gap 9 Blood Urea Nitrogen 9 mg/dl Creatinine 0.65 mg/dl Est Glomerular Filtrat Rate mL/min > 60 mL/min Glucose Level 100 mg/dl Calcium Level 9.1 mg/dl Troponin I < 0.012 ng/ml POC Beta HCG, Qualitative POSITIVE Beta HCG, Quantitative 91439.0 mIU/ml Current Medications Medications Dose Sig/Redd Start Time Status Last (Trade) Ordered Route PRN Stop Time Admin Dose Reason Admin IV Flush 10 ml STK-MED 02/06/19 DC 02/06/19 (NS 10 ml) ONCE .ROUTE 20:25 20:50 02/06/19 20:26 Sodium 100 ml @ ud STK-MED 02/06/19 DC 02/06/19 Chloride ONCE .ROUTE 20:25 20:50 02/06/19 20:26 Iohexol 100 ml @ ud STK-MED 02/06/19 DC 02/06/19 ONCE .ROUTE 20:25 20:50 02/06/19 20:26 Sodium 1,000 ml @ Q1H ONCE 02/06/19 DC 02/06/19 Chloride 1,000 mls/hr IV 21:00 20:50 02/06/19 21:59 Morphine 2 mg ONCE STAT 02/06/19 DC 02/06/19 Sulfate IV 20:34 20:51 (morphine) 02/06/19 20:36 Ondansetron 4 mg ONCE STAT 02/06/19 DC 02/06/19 HCl (Zofran IV 20:34 20:50 Inj) 02/06/19 20:36 Procedures/MDM [place] [address] Radiology Main Line: [phone] DIAGNOSTIC IMAGING REPORT Patient: PHUONG HEARD : 1990 Age: 28 Sex: F MR #: [id number] DOS: 02/06/191856 Ordering MD: KAMILA MARTINEZ MD Location: E/R Room/Bed: PROCEDURE: XR Chest. CLINICAL INDICATION: chest pain TECHNIQUE: Single frontal view of the chest was obtained . The patient was shielded for the examination. COMPARISON: None FINDINGS: The heart and mediastinum are within normal limits. The lungs are clear. There is no pleural effusion or pneumothorax. RPTAT: AA IMPRESSION: No acute disease. .Geremias Cook MD, MD Date Time Electronically viewed and signed by .Geremias Cook MD, on 02/06/2019 20:02 .S/ CC: KAMILA MARTINEZ MD [id number] [place] [address] Radiology Main Line: [phone] DIAGNOSTIC IMAGING REPORT Patient: PHUONG HEARD : 1990 Age: 28 Sex: F MR #: [id number] DOS: 02/06/191856 Ordering MD: KAMILA MARTINEZ MD Location: E/R Room/Bed: PROCEDURE: CT angiogram Chest. CLINICAL INDICATION: 28 year-old with acute shortness of breath. . TECHNIQUE: CT angiogram of the chest was performed after the administration of 100 ml Omnipaque-350 intravenous contrast. Coronal and sagittal reformations were obtained. 3-D images were performed. DICOM images are available. CTDI: 17.65 mGy and DLP: 654.13 mGy.cm. One or more of the following dose reduction techniques were utilized: Automated exposure control, adjustment of the mA and/or kV according to patient size, use of iterative reconstruction technique. COMPARISON: Radiograph 02/06/2019 FINDINGS: Pulmonary angiogram: Streak artifact limiting evaluation of the sub segmental left lower lobe pulmonary arteries. Otherwise no evidence of pulmonary emboli. Normal caliber main pulmonary artery. Aortic angiogram: Normal caliber aorta without aneurysmal dilatation or dissection. Cardiac: Normal heart size. No pericardial effusion. Pulmonary: 4 mm right lower lobe calcified granuloma. No consolidation. No pleural effusion. No pneumothorax. Mediastinum: No axillary, mediastinal or hilar adenopathy. Bones: No suspicious osseous lesions. Abdomen: Visualized portions of the upper abdomen are normal. IMPRESSION: No evidence of pulmonary embolus. No pulmonary consolidation. Benign right lower lobe calcified granuloma. RPTAT:AAJJ Physician Vera Date Time Electronically viewed and signed by Divine Monreal Physician on 02/06/2019 21:29 MH/ CC: KAMILA MARTINEZ MD [id number] [place] [address] Radiology Main Line: [phone] DIAGNOSTIC IMAGING REPORT Patient: PHUONG HEARD : 1990 Age: 28 Sex: F MR #: [id number] DOS: 02/06/19 1857 Ordering MD: KAMILA MARTINEZ MD Location: E/R Room/Bed: PROCEDURE: US OB. CLINICAL INDICATION: Vaginal bleeding TECHNIQUE: Transabdominal and transvaginal views of the pelvis are available for review. COMPARISON: No prior studies are available for comparison. FINDINGS: There is a single intrauterine gestation with the crown-rump length measuring 0.5 cm and the gestational sac measures 2.1 cm, corresponding to a gestational age of 6 weeks and 4 days. The heart rate is noted at 107 bpm. The ovaries are normal in size and echogenicity. Normal Doppler flow is identified in both ovaries. The right ovary measures 3.4 x 1.9 x 3.0 cm. There is a corpus luteum cyst in the right ovary, measuring 2 cm. The left ovary measures 2.5 x 1.4 x 1.5 cm. There is a 7 mm simple cyst in the left ovary. There is no free fluid. RPTAT: AA IMPRESSION: Single live intrauterine with an estimated gestational age of 6 weeks and 4 days, based on ultrasound measurements. MAE based on ultrasound measurements is 09/28/19. bradycardia. Close follow-up is recommended. .Geremias Cook MD MD Date Time Electronically viewed and signed by .Geremias Cook MD, MD on 02/06/2019 20:02 .S/ CC: KAMILA MARTINEZ MD [id number] EKG: Read by emergency physician Rate/Rhythm: Normal Sinus Rhythm 79 beats/min QRS, ST, T-waves: No ST elevation, no T inversion Impression: Normal EKG Risks/benefits/alternatives were explained to the patient prior to the CT angiogram of the chest due to radiation effects on the . She agreed to have a CT angiogram because she does not plan to keep the baby MEDICAL MAKING DECISION: The patient is a 38-year-old female, presenting with acute chest pain for 2-3 days he is stable for outpatient follow-up. I do not suspect acute ACS with negative troponin. She was treated with 1 L normal saline for clinical dehydration, morphine 2 mg IV for pain, Zofran IV for nausea with good response The differential diagnoses considered include but are not limited to acute coronary syndrome, acute myocardial infarction, pericarditis, pulmonary embolism, aortic dissection, pneumonia, pleural effusion, pneumothorax, GERD, chest wall pain. Departure Diagnosis: Primary Impression: Chest pain Condition: Good Comments I discussed the findings with the patient. I advised the patient to follow-up with the primary physician in about 1-2 days, sooner if needed and return if any concern. Disclaimer: Inadvertent spelling and grammatical errors are likely due to EHR/d ictation software use and do not reflect on the overall quality of patient care. Also, please note that the electronic time recorded on this note does not necessarily reflect the actual time of the patient encounter. KAMILA MARTINEZ MD Feb 06, 2019 18:47
[2019-02-06] MEDS ORDERED: IOHEXOL 100 ML ONE (20:25)
[2019-02-06] MEDS ORDERED: SOD CHLORIDE 0.9% 100 ML ONE (20:25)
[2019-02-06] MEDS ORDERED: morphine 2 MG INJ IV STA (20:34)
[2019-02-06] MEDS ORDERED: ONDANSETRON 4 MG INJ IV STA (20:34)
[2019-02-06] MEDS ORDERED: SOD CHLORIDE 0.9% 1,000 ML IV ONE (21:00)
[2019-02-06 22:13] VITALS: BP 111/70; PULSE 75; RESP 16
== END 2019-02-06 22:14 | disposition home or self-care (01) ==
LOC: E/R 18:14
DX: O26.891 Other specified pregnancy related conditions, first trimester (principal); R07.9 Chest pain, unspecified; Z3A.01 Less than 8 weeks gestation of pregnancy; Z87.891 Personal history of nicotine dependence
CPT/HCPCS: 36415; 71045; 71275; 76801; 76817; 80048; 81025; 84484; 84702; 85025; 93005; 96361; 96374; 96375; J2270; J2405; J7030; Q9967; Z7502; Z7610